=== PATIENT | female | born 1990 ===

== ENCOUNTER 2016-11-26 22:53 | Emergency (ER) | payer MEDICAID ==
[2016-11-26 23:05] VITALS: BP 149/90; PULSE 74; RESP 16; TEMP 97.9; O2SAT 100
--- NOTE | 2016-11-26 23:52 | ED PDOC ---
HPI: Headache Time Seen by Provider: 11/26/16 23:15 Chief Complaint (Nursing): Dizziness/Lightheaded Chief Complaint (Provider): Headache/SOB History Per: Patient History/Exam Limitations: no limitations Onset/Duration Of Symptoms: Days (x1) Current Symptoms Are (Timing): Still Present Additional Complaint(s): Marielos Hooker is a 26 year old female with a history of hypothyroidism that presents to the ED with a chief complaint of difficulty breathing, dizziness, and headache that she has been experiencing for the past day. Patient denies any nausea, vomiting, fever, sore throat, cough, or leg swelling. She denies experiencing any of these symptoms in the past and denies history of asthma or coagulation problems. Past Medical History Reviewed: Historical Data, Nursing Documentation, Vital Signs Vital Signs: Last Vital Signs Temp 97.9 F 11/26/16 23:01 Pulse 74 11/26/16 23:01 Resp 16 11/26/16 23:01 BP 149/90 11/26/16 23:01 Pulse Ox 100 11/26/16 23:01 - Medical History PMH: Depression, Hypothyroidism Denies: Asthma, Diabetes, Hepatitis, HIV, HTN, Chronic Kidney Disease, Seizures, Sexually Transmitted Disease - Family History Family History: States: Unknown Family Hx - Social History Current smoker - smoking cessation education provided: No Alcohol: None - Immunization History Hx Tetanus Toxoid Vaccination: No Hx Influenza Vaccination: No Hx Pneumococcal Vaccination: No - Home Medications Home Medications: Ambulatory Orders Medication Instructions Recorded Levothyroxine [Synthroid] 100 mcg PO DAILY 06/02/16 Nitrofurantoin Macrocrystals 100 mg PO BID #14 cap 11/27/16 [Macrobid] - Allergies Allergies/Adverse Reactions: Allergies Allergy/AdvReac Type Severity Reaction Status Date / Time No Known Allergies Allergy Verified 06/02/16 11:25 Review of Systems Constitutional: Negative for: Fever ENT: Negative for: Throat Pain Respiratory: Positive for: Other (Patient reports difficulty breathing). Negative for: Cough Gastrointestinal: Negative for: Vomiting, Diarrhea Neurological: Positive for: Headache, Dizziness Physical Exam - Reviewed Nursing Documentation Reviewed: Yes Vital Signs Reviewed: Yes - Physical Exam Appears: Positive for: Non-toxic, No Acute Distress Head Exam: Positive for: ATRAUMATIC, NORMOCEPHALIC Skin: Positive for: Normal Color, Warm Eye Exam: Positive for: EOMI, Normal appearance, PERRL Cardiovascular/Chest: Positive for: Regular Rate, Rhythm. Negative for: Murmur Respiratory: Positive for: Normal Breath Sounds. Negative for: Wheezing Gastrointestinal/Abdominal: Positive for: Normal Exam, Soft. Negative for: Tenderness Extremity: Positive for: Normal ROM. Negative for: Pedal Edema, Swelling Neurologic/Psych: Positive for: Alert, Oriented. Negative for: Motor/Sensory Deficits - Laboratory Results Result Diagrams: 11/27/16 00:45 11/27/16 00:45 - ECG O2 Sat by Pulse Oximetry: 100 (RA) Pulse Ox Interpretation: Normal Medical Decision Making Medical Decision Making: Impression: Psychosomatically Induced Difficulty Breathing Plan: Upon looking into patient's chart, discovered that she has a history of adjustment disorder with depressed mood. * Beta-HCG * CMP * CBC * Urine C&S * Urinalysis * Reevaluation 1:55 Patient has UTI, will be given prescription for Macrobid and advised to follow up with PMD in 1-2 days. Patient is stable for discharge home. Scribe Attestation: Documented by Karla Bob, acting as a scribe for Munir Valencia MD. Provider Scribe Attestation: All medical record entries made by the Scribe were at my direction and personally dictated by me. I have reviewed the chart and agree that the record accurately reflects my personal performance of the history, physical exam, medical decision making, and the department course for this patient. I have also personally directed, reviewed, and agree with the discharge instructions and disposition. Disposition - Clinical Impression Clinical Impression: Dizziness, UTI (urinary tract infection) - Patient ED Disposition Is Patient to be Admitted: No Counseled Patient/Family Regarding: Studies Performed, Diagnosis, Need For Followup - Disposition Referrals: [facility] [Outside] [facility] [Outside] Disposition: Routine/Home Disposition Time: 01:55 Condition: IMPROVED Additional Instructions: follow up with your primary doctor in 1-2 days return to the ED with any worsening or concerning symptoms Prescriptions: Nitrofurantoin Macrocrystals [Macrobid] 100 mg PO BID #14 cap Instructions: Urinary Tract Infection in Women (ED), Dizziness (ED) Forms: [employer] (Kinyarwanda)
[2016-11-27 00:54] LABS: BASO # 0.1 K/uL (0.0-0.2); BASO % 0.7 % (0.0-2.0); EOS # 0.2 K/uL (0.0-0.7); EOS % 2.2 % (0.0-4.0); HEMATOCRIT 39.9 % (34.0-47.0); LYMPH # 4.4 K/uL (1.0-4.3); LYMPH % 44.6 % (20.0-40.0); MEAN CELL VOLUME 84.5 fl (81.0-99.0); MEAN CORPUSCULAR HEMOGLOBIN 27.2 pg (27.0-31.0); MEAN CORPUSCULAR HGB CONC 32.2 g/dL (33.0-37.0); MEAN PLATELET VOLUME 8.8 fl (7.2-11.7); MONO # 0.8 K/uL (0.0-0.8); MONO % 8.4 % (0.0-10.0); NEUT # 4.3 K/uL (1.8-7.0); NEUT % 44.1 % (50.0-75.0); NRBC % 0.1 % (0.0-0.0); RED CELL DISTRIBUTION WIDTH 13.5 % (11.5-14.5); WHITE BLOOD COUNT 9.8 K/uL (4.8-10.8)
[2016-11-27 01:04] LABS: ALB/GLOB RATIO 1.1 (1.0-2.1); ALKALINE PHOSPHATASE 68 U/L (38-126); ALT/SGPT 27 U/L (9-52); AST/SGOT 19 U/L (14-36); BILIRUBIN,TOTAL 0.2 mg/dl (0.2-1.3); BLOOD UREA NITROGEN 16 mg/dl (7-17); CALCIUM 9.2 mg/dL (8.4-10.2); CARBON DIOXIDE 19 mmol/L (22-30); CHLORIDE 108 mmol/L (98-107); GFR AFRICAN-AMERICAN > 60; GLUCOSE,RANDOM 90 mg/dL (65-105); POTASSIUM 4.2 MMOL/L (3.6-5.0); SODIUM 140 mmol/l (132-148)
[2016-11-27 01:11] LABS: RBC URINE 11 /hpf (0-3); URINE BACTERIA MANY (<OCC); URINE BILIRUBIN NEGATIVE (NEGATIVE); URINE BLOOD SMALL (NEGATIVE); URINE COLOR YELLOW (YELLOW); URINE GLUCOSE (UA) 50 mg/dL (Normal); URINE KETONE NEGATIVE (NEGATIVE); URINE LEUKOCYTE ESTERASE SMALL Leu/uL (Negative); URINE PROTEIN 30 mg/dL (NEGATIVE); URINE UROBILINOGEN 0.2-1.0 mg/dL (0.2-1.0); WBC URINE 28 /hpf (0-5)
== END 2016-11-27 02:15 | disposition home or self-care (01) ==
LOC: H.ER 22:53
DX: N39.0 Urinary tract infection, site not specified (principal); R42 Dizziness and giddiness; E03.9 Hypothyroidism, unspecified